=== PATIENT | female | born 1995 | race Two or more races ===

== ENCOUNTER 2016-08-28 13:40 | Observation (INO) | payer MEDICAID ==
[~2016-08-28 13:40] MED LIST: NORPTMEDS CO
[2016-08-28 14:58] LABS: Urine RBC None Seen /hpf (0 - 4)
[2016-08-28 16:01] LABS: Urine Bilirubin Negative (Negative); Urine Blood Negative /uL (Negative); Urine Color Yellow (Yellow); Urine Glucose TRACE mg/dL (Normal); Urine Ketone Negative (Negative); Urine Mucus FEW (None Seen); Urine Nitrite Negative (Negative); Urine Squamous Epithelial Cell MOD /hpf (<5); Urine Urobilinogen Normal (Negative)
== END 2016-08-28 14:44 | disposition home or self-care (01) | DRG 955 ==
LOC: LDRP 13:40
PROVIDERS: ADMIT Specialist; ATTEND Specialist
DX: O26.899 Other specified pregnancy related conditions, unspecified trimester (principal); R07.9 Chest pain, unspecified
CPT/HCPCS: 59025; 81001; 81002; G0378; G0434

== ENCOUNTER 2021-07-11 01:06 | Emergency (ER) | payer MEDICAID ==
[~2021-07-11] VITALS: Ht 167.6 cm; Wt 65.8 kg
[2021-07-11 01:10] VITALS: BP 141/92
== END 2021-07-11 03:34 | disposition left against medical advice (07) ==
LOC: ER 01:08
DX: R05.9 Cough, unspecified (principal); R11.2 Nausea with vomiting, unspecified; J02.9 Acute pharyngitis, unspecified; Z53.21 Procedure and treatment not carried out due to patient leaving prior to being seen by health care provider; Z20.822 Contact with and (suspected) exposure to COVID-19
CPT/HCPCS: 36415; 87426

== ENCOUNTER 2022-05-26 05:05 | Emergency (ER) | payer MEDICAID ==
[~2022-05-26] VITALS: Ht 167.6 cm; Wt 72.0 kg
[2022-05-26 06:57] VITALS: BP 119/70
[2022-05-26] MEDS ORDERED: AMOX500C2 PO ×2 (07:31→08:26)
== END 2022-05-26 07:39 | disposition home or self-care (01) ==
LOC: ER 05:05
DX: J01.90 Acute sinusitis, unspecified (principal); Z20.822 Contact with and (suspected) exposure to COVID-19
CPT/HCPCS: 36415; 87426; 87804